=== PATIENT | female | born 1950 | race Caucasian/White ===

== ENCOUNTER 2023-04-29 18:24 | Inpatient (IN) | payer MEDICARE ==
[~2023-04-29 18:24] MED LIST: Iopamidol-370 76% 500 ML MDV (1 ML CHARGE) ONE
[2023-04-29 19:07] LABS: #Eosinphils 0.1 thou/uL (0.0-0.7); #Monocytes 0.5 thou/uL (0.11-0.59); #Neutrophils 5.8 thou/uL (1.40-6.50); %Basophils 0.4 % (0.0-1.0); %Eosinophils 0.8 % (0.0-10.0); %Lymphocytes 12.6 % (21.0-51.0); %Monocytes 6.8 % (0.0-10.0); %Neutrophils 79.3 % (42.0-75.0); Hematocrit 38.5 % (36.0-47.0); Hemoglobin 12.1 g/dL (12.0-16.0); Mean Corpuscular HGB CONC 31.4 g/dL (32.0-36.0); Mean Corpuscular Volume 95.5 fl (78.0-98.0); Mean Platelet Volume 10.1 fL (7.4-10.4); Platelet Count 153 10x3/uL (130-400); Red Blood Cell (RBC) Count 4.03 mill/uL (4.20-5.40); White Blood Cell (WBC) Count 7.3 10x3/uL (4.8-10.8)
[2023-04-29] MEDS ORDERED: cefTRIAXone (ROCEPHIN) 2 GM VIAL ONE (19:23)
[2023-04-29] MEDS ORDERED: Sodium Chloride 0.9% 100 ML ONE (19:23)
[2023-04-29 19:28] LABS: Bacteria/HPF None Seen HPF (None Seen); Bilirubin Negative (Negative); Blood, Urine Negative (Negative); CAUTI Indications for Culture Alt mental st,lethar; Clarity Clear (Clear); Glucose, Urine (Dipstick) Normal (Negative); Ketone, Urine Negative (Negative); Leukocyte Negative Leu/uL (Negative); Nitrite Negative (Negative); Protein, Urine (Dipstick) Negative (Neg-Trace); RBC/HPF 0-3 HPF (0-3); Specific Gravity, Urine 1.021 (1.002-1.036); Squamous Epithelial 0-3 HPF (0-3); Urobilinogen Normal mg/dL (Less than 2); WBC/HPF 0-3 HPF (0-3)
[2023-04-29 19:30] LABS: ALT (SGPT) 13 U/L (8-55); AST (SGOT) 14 U/L (5-34); Alkaline Phosphatase 54 U/L (40-110); Anion Gap 14 mmol/L (10-20); BUN (Urea Nitrogen) 18 mg/dL (9.8-20.1); Bilirubin, Total 0.3 mg/dL (0.2-1.2); Calc. Creatinine Clearance 0 mL/min (70-130); Calcium 8.2 mg/dL (7.8-10.44); Carbon Dioxide 22 mmol/L (23-31); Chloride 108 mmol/L (98-107); Estimated GFR 75; Globulin 1.9 g/dL (2.4-3.5); Glucose 154 mg/dL (83-110); Potassium 3.6 mmol/L (3.5-5.1); Protein, Total 5.9 g/dL (5.8-8.1); Sodium 140 mmol/L (136-145)
[2023-04-29 19:34] LABS: Urine Culture Reflex No No
[2023-04-29 19:34] LABS: Troponin I Less than 0.010 ng/mL (< 0.028)
[2023-04-29 20:44] LABS: SARS-CoV-2 NAA Rapid Test Not Detected (NotDetected)
[2023-04-29 22:12] LABS: Lactic Acid 1.9 mmol/L (0.5-2.2)
[2023-04-29] MEDS ORDERED: Calcium Carbonate 500 MG ChewTAB PO PRN (22:49)
[2023-04-29] MEDS ORDERED: Senokot S 8.6-50 MG TAB PO PRN (22:49)
[2023-04-29] MEDS ORDERED: Ondansetron ODT 4 MG TAB PO PRN (22:49)
[2023-04-29] MEDS ORDERED: Acetaminophen 325 MG TAB PO PRN (22:49)
[2023-04-30 00:21] VITALS: BMI 25.0
[2023-04-30 04:10] LABS: #Eosinphils 0.1 thou/uL (0.0-0.7); #Monocytes 0.4 thou/uL (0.11-0.59); #Neutrophils 3.5 thou/uL (1.40-6.50); %Basophils 0.4 % (0.0-1.0); %Eosinophils 0.9 % (0.0-10.0); %Lymphocytes 24.7 % (21.0-51.0); %Neutrophils 65.6 % (42.0-75.0); Hemoglobin 11.7 g/dL (12.0-16.0); Mean Corpuscular HGB CONC 31.6 g/dL (32.0-36.0); Mean Corpuscular Hemoglobin 29.6 pg (27.0-31.0); Mean Corpuscular Volume 93.7 fl (78.0-98.0); Platelet Count 146 10x3/uL (130-400); RBC Distribution Width 12.8 % (11.5-14.5); Red Blood Cell (RBC) Count 3.95 mill/uL (4.20-5.40); White Blood Cell (WBC) Count 5.4 10x3/uL (4.8-10.8)
[2023-04-30 04:45] LABS: Anion Gap 10 mmol/L (10-20); BUN (Urea Nitrogen) 13 mg/dL (9.8-20.1); Calc. Creatinine Clearance 75 mL/min (70-130); Calcium 8.3 mg/dL (7.8-10.44); Carbon Dioxide 23 mmol/L (23-31); Chloride 109 mmol/L (98-107); Estimated GFR 94; Glucose 94 mg/dL (83-110); Potassium 3.4 mmol/L (3.5-5.1); Sodium 139 mmol/L (136-145)
[2023-04-30] MEDS ORDERED: Electrolyte Replacement Protocol 1 EACH FS SCH (05:57)
[2023-04-30] MEDS ORDERED: Potassium Chloride 20 MEQ TAB PO SCH (08:00)
[2023-04-30] MEDS ORDERED: BROMFENAC SODIUM L EYE SCH (09:00)
[2023-04-30] MEDS: Famotidine 20 MG TAB PO SCH ×2 (09:14→20:28)
[2023-04-30] MEDS: busPIRone HCl 10 MG TAB PO SCH ×3 (09:14→20:28)
[2023-04-30] MEDS: Fluticasone Propionate Nasal Spray 16 gm Bottle NASAL SCH (16:52)
[2023-04-30] MEDS ORDERED: cefTRIAXone\\ROCEPHIN 1 GM in Sodium Chloride 0.9% 100 ML IVPB SCH (20:00)
[2023-04-30] MEDS ORDERED: Mirtazapine 30 MG TAB PO SCH (21:00)
[2023-05-01 04:52] LABS: #Eosinphils 0.1 thou/uL (0.0-0.7); #Monocytes 0.5 thou/uL (0.11-0.59); #Neutrophils 2.6 thou/uL (1.40-6.50); %Basophils 0.7 % (0.0-1.0); %Eosinophils 2.9 % (0.0-10.0); %Lymphocytes 28.5 % (21.0-51.0); %Monocytes 10.3 % (0.0-10.0); %Neutrophils 57.2 % (42.0-75.0); Hematocrit 39.6 % (36.0-47.0); Hemoglobin 12.8 g/dL (12.0-16.0); Mean Corpuscular HGB CONC 32.3 g/dL (32.0-36.0); Mean Corpuscular Hemoglobin 30.4 pg (27.0-31.0); Mean Corpuscular Volume 94.1 fl (78.0-98.0); Mean Platelet Volume 10.6 fL (7.4-10.4); Platelet Count 154 10x3/uL (130-400); Red Blood Cell (RBC) Count 4.21 mill/uL (4.20-5.40); White Blood Cell (WBC) Count 4.6 10x3/uL (4.8-10.8)
[2023-05-01 05:19] LABS: Anion Gap 13 mmol/L (10-20); BUN (Urea Nitrogen) 13 mg/dL (9.8-20.1); Calc. Creatinine Clearance 62 mL/min (70-130); Calcium 8.7 mg/dL (7.8-10.44); Carbon Dioxide 26 mmol/L (23-31); Chloride 110 mmol/L (98-107); Estimated GFR 81; Glucose 87 mg/dL (83-110); Potassium 4.1 mmol/L (3.5-5.1); Sodium 145 mmol/L (136-145)
[2023-05-01] MEDS: busPIRone HCl 10 MG TAB PO SCH ×3 (09:04→15:43)
[2023-05-01] MEDS: Fluticasone Propionate Nasal Spray 16 gm Bottle NASAL SCH (09:05)
[2023-05-01] MEDS: Famotidine 20 MG TAB PO SCH (09:05)
[2023-05-01 12:08] VITALS: BP 133/75; TEMP 97.8
[2023-05-01] MEDS ORDERED: Amoxicillin/Potassium Clav 875 MG TAB PO SCH (21:00)
== END 2023-05-01 15:40 | DRG 149 ==
LOC: ERS 18:24 → 2SE 22:42
PROVIDERS: ADMIT Student in an Organized Health Care Education/Training Program; ATTEND Hospitalist
PROC: 0T9B70Z Drainage of Bladder with Drainage Device, Via Natural or Artificial Opening (ICD-10-PCS; principal; 2023-04-29)
DX: R42 Dizziness and giddiness (principal); R65.10 Systemic inflammatory response syndrome (SIRS) of non-infectious origin without acute organ dysfunction; R26.81 Unsteadiness on feet; G30.9 Alzheimer's disease, unspecified; F02.80 Dementia in other diseases classified elsewhere, unspecified severity, without behavioral disturbance, psychotic disturbance, mood disturbance, and anxiety; Z11.52 Encounter for screening for COVID-19; Z88.1 Allergy status to other antibiotic agents; Z79.899 Other long term (current) drug therapy; E78.5 Hyperlipidemia, unspecified; F32.A Depression, unspecified
CPT/HCPCS: 36415; 36416; 70496; 70551; 71045; 71275; 80048; 80053; 81001; 83605; 84484; 85025; 85379; 87040; 93005; 93306; J0696; J1650; J3490; Q9967

== ENCOUNTER 2023-07-15 21:46 | Emergency (ER) | payer MEDICARE ==
[2023-07-15 22:44] LABS: #Eosinphils 0.1 thou/uL (0.0-0.7); #Monocytes 0.5 thou/uL (0.11-0.59); #Neutrophils 3.2 thou/uL (1.40-6.50); %Basophils 0.6 % (0.0-1.0); %Eosinophils 1.6 % (0.0-10.0); %Lymphocytes 26.6 % (21.0-51.0); %Monocytes 9.1 % (0.0-10.0); %Neutrophils 61.9 % (42.0-75.0); Hematocrit 39.3 % (36.0-47.0); Hemoglobin 12.5 g/dL (12.0-16.0); Mean Corpuscular HGB CONC 31.8 g/dL (32.0-36.0); Mean Corpuscular Hemoglobin 29.8 pg (27.0-31.0); Mean Corpuscular Volume 93.6 fl (78.0-98.0); Platelet Count 128 10x3/uL (130-400); RBC Distribution Width 13.1 % (11.5-14.5); White Blood Cell (WBC) Count 5.2 10x3/uL (4.8-10.8)
[2023-07-15 22:57] LABS: ALT (SGPT) 16 U/L (8-55); AST (SGOT) 13 U/L (5-34); Albumin 3.5 g/dL (3.4-4.8); Alkaline Phosphatase 45 U/L (40-110); Anion Gap 14 mmol/L (10-20); BUN (Urea Nitrogen) 21 mg/dL (9.8-20.1); Bilirubin, Total 0.2 mg/dL (0.2-1.2); Calc. Creatinine Clearance 0 mL/min (70-130); Calcium 8.4 mg/dL (7.8-10.44); Carbon Dioxide 22 mmol/L (23-31); Chloride 110 mmol/L (98-107); Estimated GFR 80; Globulin 2.2 g/dL (2.4-3.5); Glucose 89 mg/dL (83-110); Potassium 3.6 mmol/L (3.5-5.1); Protein, Total 5.7 g/dL (5.8-8.1); Sodium 142 mmol/L (136-145)
[2023-07-15 23:40] LABS: Troponin I Less than 0.010 ng/mL (< 0.028)
[2023-07-16 01:37] LABS: Bacteria/HPF None Seen HPF (None Seen); Bilirubin Negative (Negative); Blood, Urine Negative (Negative); CAUTI Indications for Culture Alt mental st,lethar; Clarity Clear (Clear); Glucose, Urine (Dipstick) Normal (Negative); Ketone, Urine Negative (Negative); Leukocyte Negative Leu/uL (Negative); Nitrite Negative (Negative); Protein, Urine (Dipstick) Negative (Neg-Trace); RBC/HPF None Seen HPF (0-3); Specific Gravity, Urine 1.024 (1.002-1.036); Squamous Epithelial 0-3 HPF (0-3); WBC/HPF 0-3 HPF (0-3)
[2023-07-16 01:40] LABS: Urine Culture Reflex No No
== END 2023-07-16 04:30 ==
LOC: ERS 21:46
DX: Z04.3 Encounter for examination and observation following other accident (principal); R29.6 Repeated falls; G30.9 Alzheimer's disease, unspecified; F02.80 Dementia in other diseases classified elsewhere, unspecified severity, without behavioral disturbance, psychotic disturbance, mood disturbance, and anxiety; Z79.899 Other long term (current) drug therapy
CPT/HCPCS: 36415; 51701; 70450; 71045; 72125; 72170; 80053; 81001; 84484; 85025; 93005; 96360; 96361

== ENCOUNTER 2023-08-13 16:09 | Inpatient (IN) | payer MEDICARE ==
[2023-08-13 17:07] LABS: #Monocytes 0.3 thou/uL (0.11-0.59); %Basophils 0.4 % (0.0-1.0); %Eosinophils 0.8 % (0.0-10.0); %Lymphocytes 29.1 % (21.0-51.0); %Monocytes 7.1 % (0.0-10.0); %Neutrophils 62.2 % (42.0-75.0); Hemoglobin 12.4 g/dL (12.0-16.0); Mean Corpuscular HGB CONC 31.8 g/dL (32.0-36.0); Mean Corpuscular Hemoglobin 29.8 pg (27.0-31.0); Mean Corpuscular Volume 93.8 fl (78.0-98.0); Platelet Count 174 10x3/uL (130-400); RBC Distribution Width 14.1 % (11.5-14.5); Red Blood Cell (RBC) Count 4.16 mill/uL (4.20-5.40); White Blood Cell (WBC) Count 4.8 10x3/uL (4.8-10.8)
[2023-08-13 17:28] LABS: ALT (SGPT) 15 U/L (8-55); AST (SGOT) 15 U/L (5-34); Albumin 3.7 g/dL (3.4-4.8); Alkaline Phosphatase 63 U/L (40-110); Anion Gap 13 mmol/L (10-20); BUN (Urea Nitrogen) 17 mg/dL (9.8-20.1); Bilirubin, Total 0.4 mg/dL (0.2-1.2); Calc. Creatinine Clearance 0 mL/min (70-130); Calcium 8.9 mg/dL (7.8-10.44); Carbon Dioxide 27 mmol/L (23-31); Chloride 108 mmol/L (98-107); Estimated GFR 90; Globulin 2.4 g/dL (2.4-3.5); Glucose 87 mg/dL (83-110); Protein, Total 6.1 g/dL (5.8-8.1); Sodium 144 mmol/L (136-145)
[2023-08-13 17:54] LABS: Bacteria/HPF None Seen HPF (None Seen); Bilirubin Negative (Negative); Blood, Urine Negative (Negative); CAUTI Indications for Culture Alt mental st,lethar; Clarity Clear (Clear); Glucose, Urine (Dipstick) Normal (Negative); Ketone, Urine Negative (Negative); Leukocyte Negative Leu/uL (Negative); Nitrite Negative (Negative); Protein, Urine (Dipstick) Negative (Neg-Trace); RBC/HPF None Seen HPF (0-3); Specific Gravity, Urine 1.018 (1.002-1.036); Squamous Epithelial 0-3 HPF (0-3); WBC/HPF 0-3 HPF (0-3)
[2023-08-13 17:55] LABS: Urine Culture Reflex No No
[2023-08-13] MEDS ORDERED: Morphine 4 MG/ML VIAL ONE (18:21)
[2023-08-13] MEDS ORDERED: Ondansetron PF 4 MG/2 ML Vial ONE (18:21)
[2023-08-13] MEDS ORDERED: Ipratropium/Albuterol 3 ML NEB NEB PRN (19:07)
[2023-08-13] MEDS ORDERED: Ondansetron PF 4 MG/2 ML Vial IVP PRN (19:07)
[2023-08-13] MEDS ORDERED: Morphine 2 MG/ML VIAL SLOW IVP PRN (19:07)
[2023-08-13] MEDS: Acetaminophen 500 MG TAB PO SCH (20:00)
[2023-08-13] MEDS: busPIRone HCl 10 MG TAB PO SCH (20:02)
[2023-08-13] MEDS: Memantine 10 MG TAB PO SCH (20:04)
[2023-08-13] MEDS: Melatonin 3 MG TAB PO SCH (20:05)
[2023-08-13] MEDS: Mirtazapine 15 MG TAB PO SCH (20:06)
[2023-08-13] MEDS: Famotidine/PF 20 mg/2ml Vial SLOW IVP SCH (20:08)
[2023-08-13] MEDS: TETANUS, DIPHTHERIA TOX,ADULT (TDVAX) 0.5 ML VIAL IM ONE (20:10)
[2023-08-13] MEDS: Sodium Chloride 0.9% 1,000 ML IV SCH (20:10)
[2023-08-13 20:33] LABS: Hematocrit 41.7 % (36.0-47.0); Hemoglobin 13.1 g/dL (12.0-16.0); Mean Corpuscular HGB CONC 31.4 g/dL (32.0-36.0); Mean Corpuscular Hemoglobin 29.2 pg (27.0-31.0); Mean Corpuscular Volume 93.1 fl (78.0-98.0); Mean Platelet Volume 9.7 fL (7.4-10.4); Platelet Count 164 10x3/uL (130-400); Red Blood Cell (RBC) Count 4.48 mill/uL (4.20-5.40); White Blood Cell (WBC) Count 7.6 10x3/uL (4.8-10.8)
[2023-08-13 20:51] LABS: Anion Gap 11 mmol/L (10-20); BUN (Urea Nitrogen) 14 mg/dL (9.8-20.1); Calc. Creatinine Clearance 0 mL/min (70-130); Calcium 8.9 mg/dL (7.8-10.44); Carbon Dioxide 26 mmol/L (23-31); Chloride 108 mmol/L (98-107); Estimated GFR 92; Glucose 96 mg/dL (83-110); Magnesium 2.1 mg/dL (1.6-2.6); Phosphorus 3.3 mg/dL (2.3-4.7); Potassium 3.5 mmol/L (3.5-5.1); Sodium 141 mmol/L (136-145)
[2023-08-13] MEDS: Lactated Ringer's 1,000 ML IV SCH (21:19)
[2023-08-13 22:45] VITALS: BMI 25.2
[2023-08-13] MEDS: Ketorolac Tromethamine 30 MG (1 mL) VIAL IVP SCH (23:36)
[2023-08-14 04:09] LABS: #Eosinphils 0.1 thou/uL (0.0-0.7); #Monocytes 0.4 thou/uL (0.11-0.59); #Neutrophils 2.3 thou/uL (1.40-6.50); %Basophils 0.5 % (0.0-1.0); %Eosinophils 1.7 % (0.0-10.0); %Lymphocytes 35.5 % (21.0-51.0); %Monocytes 8.3 % (0.0-10.0); %Neutrophils 53.8 % (42.0-75.0); Hematocrit 42.1 % (36.0-47.0); Hemoglobin 13.1 g/dL (12.0-16.0); Mean Corpuscular HGB CONC 31.1 g/dL (32.0-36.0); Mean Corpuscular Hemoglobin 29.2 pg (27.0-31.0); Mean Platelet Volume 10.5 fL (7.4-10.4); Platelet Count 148 10x3/uL (130-400); RBC Distribution Width 14.2 % (11.5-14.5); Red Blood Cell (RBC) Count 4.48 mill/uL (4.20-5.40); White Blood Cell (WBC) Count 4.2 10x3/uL (4.8-10.8)
[2023-08-14 04:39] LABS: Prothrombin Time 13.1 sec (12.0-14.7)
[2023-08-14 04:40] LABS: PTT 27.8 sec (22.9-36.1)
[2023-08-14 04:47] LABS: Anion Gap 11 mmol/L (10-20); BUN (Urea Nitrogen) 12 mg/dL (9.8-20.1); Calc. Creatinine Clearance 77 mL/min (70-130); Calcium 8.7 mg/dL (7.8-10.44); Carbon Dioxide 26 mmol/L (23-31); Chloride 111 mmol/L (98-107); Estimated GFR 95; Glucose 81 mg/dL (83-110); Potassium 3.8 mmol/L (3.5-5.1); Sodium 144 mmol/L (136-145)
[2023-08-14] MEDS ORDERED: CEFAZOLIN 2 GM in Sodium Chloride 0.9% 100 ML IVPB SCH (07:45)
[2023-08-14] MEDS ORDERED: hydrALAZINE 20 MG/ML VIAL SLOW IVP PRN (08:13)
[2023-08-14] MEDS ORDERED: BROMFENAC SODIUM L EYE SCH (09:00)
[2023-08-14] MEDS ORDERED: CEFAZOLIN 2 GM VIAL ONE (09:01)
[2023-08-14] MEDS ORDERED: Sodium Chloride 0.9% 100 ML ONE ×2 (09:02→11:13)
[2023-08-14] MEDS: busPIRone HCl 5 MG TAB PO SCH ×2 (09:41→14:05)
[2023-08-14] MEDS: Fluticasone Propionate Nasal Spray 16 gm Bottle NASAL SCH (09:41)
[2023-08-14] MEDS ORDERED: PROPOFOL 20 ML ONE (09:54)
[2023-08-14] MEDS ORDERED: fentaNYL PF 100 MCG/2 ML SYRINGE ONE (09:54)
[2023-08-14] MEDS ORDERED: Dexamethasone 4 mg/ml Vial ONE (11:04)
[2023-08-14] MEDS ORDERED: Ondansetron PF 4 MG/2 ML Vial ONE (11:04)
[2023-08-14] MEDS ORDERED: ePHEDrine Sulfate 50 MG/10 ML VIAL ONE (11:04)
[2023-08-14] MEDS ORDERED: Phenylephrine 10 MG/ML VIAL ONE (11:13)
[2023-08-14] MEDS ORDERED: PACU-Morphine 4MG/ML VIAL SLOW IVP PRN (12:01)
[2023-08-14] MEDS ORDERED: Morphine Sulfate 2 MG/ML SYRINGE SLOW IVP PRN (12:01)
[2023-08-14] MEDS ORDERED: Ondansetron HCl/PF 4 MG/2 ML Vial IVP PRN (12:01)
[2023-08-14] MEDS ORDERED: fentaNYL 50 mcg/mL 1 mL Vial ONE (12:13)
[2023-08-14] MEDS: CEFAZOLIN 2 GM in Sodium Chloride 0.9% 100 ML IVPB SCH (17:09)
[2023-08-14] MEDS: PARoxetine 20 MG TAB PO SCH (20:18)
[2023-08-15] MEDS: Haloperidol Lactate 5 MG/ML VIAL IM SCH (03:47)
[2023-08-15] MEDS: Haloperidol Lactate 5 MG/ML VIAL ONE (03:51)
[2023-08-15] MEDS: Aspirin 81 mg Enteric Coated Tablet PO SCH (09:07)
[2023-08-15] MEDS: QUEtiapine 25 MG TAB PO SCH (20:37)
[2023-08-16 04:44] LABS: #Eosinphils 0.1 thou/uL (0.0-0.7); #Monocytes 0.3 thou/uL (0.11-0.59); %Basophils 0.4 % (0.0-1.0); %Lymphocytes 29.8 % (21.0-51.0); %Monocytes 6.3 % (0.0-10.0); %Neutrophils 61.3 % (42.0-75.0); Hematocrit 40.6 % (36.0-47.0); Hemoglobin 12.9 g/dL (12.0-16.0); Mean Corpuscular HGB CONC 31.8 g/dL (32.0-36.0); Mean Corpuscular Hemoglobin 29.8 pg (27.0-31.0); Mean Corpuscular Volume 93.8 fl (78.0-98.0); Mean Platelet Volume 10.4 fL (7.4-10.4); Platelet Count 136 10x3/uL (130-400); RBC Distribution Width 14.1 % (11.5-14.5); Red Blood Cell (RBC) Count 4.33 mill/uL (4.20-5.40); White Blood Cell (WBC) Count 4.9 10x3/uL (4.8-10.8)
[2023-08-16 05:18] LABS: Anion Gap 13 mmol/L (10-20); BUN (Urea Nitrogen) 12 mg/dL (9.8-20.1); Calc. Creatinine Clearance 72 mL/min (70-130); Calcium 8.5 mg/dL (7.8-10.44); Carbon Dioxide 24 mmol/L (23-31); Chloride 110 mmol/L (98-107); Estimated GFR 93; Glucose 74 mg/dL (83-110); Potassium 3.9 mmol/L (3.5-5.1); Sodium 143 mmol/L (136-145)
[2023-08-17] MEDS: Famotidine 20 MG TAB PO SCH (08:27)
[2023-08-18 15:26] VITALS: BP 153/82; TEMP 98.1
== END 2023-08-18 15:27 | DRG 481 ==
LOC: ERS 16:09 → SURG A 18:19
PROVIDERS: ADMIT Specialist; ATTEND Specialist
PROC: 0T9B70Z Drainage of Bladder with Drainage Device, Via Natural or Artificial Opening (ICD-10-PCS; principal; 2023-08-13)
PROC: 0QS704Z Reposition Left Upper Femur with Internal Fixation Device, Open Approach (ICD-10-PCS; 2023-08-14)
DX: S72.012A Unspecified intracapsular fracture of left femur, initial encounter for closed fracture (principal); F03.918 Unspecified dementia, unspecified severity, with other behavioral disturbance; F05 Delirium due to known physiological condition; W18.30XA Fall on same level, unspecified, initial encounter; Z88.8 Allergy status to other drugs, medicaments and biological substances; Z79.899 Other long term (current) drug therapy; E78.5 Hyperlipidemia, unspecified; F32.A Depression, unspecified
CPT/HCPCS: 36415; 36416; 51701; 70450; 71045; 72125; 72192; 80048; 80053; 81001; 83735; 84100; 85025; 85610; 85730; 86850; 86900; 86901; 93005; 96374; 96375; C1713; J1100; J1630; J1885; J2270; J2371; J2405; J2704; J3010; J3490; J7050; J7120; S0028

== ENCOUNTER 2023-10-22 15:54 | Emergency (ER) | payer MEDICARE | END 2023-10-22 18:40 | LOC: ERS 15:54 | DX: S62.656A Nondisplaced fracture of middle phalanx of right little finger, initial encounter for closed fracture (principal); X58.XXXA Exposure to other specified factors, initial encounter ==

== ENCOUNTER 2023-11-03 11:39 | Emergency (ER) | payer MEDICARE | END 2023-11-03 16:29 | disposition home or self-care (01) | LOC: ERS 11:39 | DX: S02.2XXA Fracture of nasal bones, initial encounter for closed fracture (principal); S22.32XA Fracture of one rib, left side, initial encounter for closed fracture; S05.12XA Contusion of eyeball and orbital tissues, left eye, initial encounter; G30.9 Alzheimer's disease, unspecified; F02.80 Dementia in other diseases classified elsewhere, unspecified severity, without behavioral disturbance, psychotic disturbance, mood disturbance, and anxiety; W18.30XA Fall on same level, unspecified, initial encounter; Z79.82 Long term (current) use of aspirin; Z79.899 Other long term (current) drug therapy; Z55.6 Problems related to health literacy | CPT/HCPCS: 36416; 70450; 71045; 72170; 93005 ==

== ENCOUNTER 2023-11-08 16:32 | Emergency (ER) | payer MEDICARE | END 2023-11-09 00:03 | LOC: ERS 16:32 | DX: R51.9 Headache, unspecified (principal); G30.9 Alzheimer's disease, unspecified; F02.80 Dementia in other diseases classified elsewhere, unspecified severity, without behavioral disturbance, psychotic disturbance, mood disturbance, and anxiety; W05.0XXA Fall from non-moving wheelchair, initial encounter; Y93.89 Activity, other specified; Y92.89 Other specified places as the place of occurrence of the external cause; Z79.82 Long term (current) use of aspirin; Z79.899 Other long term (current) drug therapy; S05.11XA Contusion of eyeball and orbital tissues, right eye, initial encounter; S80.211A Abrasion, right knee, initial encounter; N39.0 Urinary tract infection, site not specified; W18.30XA Fall on same level, unspecified, initial encounter; Y92.129 Unspecified place in nursing home as the place of occurrence of the external cause | CPT/HCPCS: 51701; 70450 ×2; 70486 ×2; 72125 ×2; 72170; 80053; 81001; 85025; 87086; 96372; 99284 ×2; J2060; 36415 ==

== ENCOUNTER 2023-12-14 08:17 | Emergency (ER) | payer MEDICARE | END 2023-12-14 11:20 | disposition home or self-care (01) | LOC: ERS 08:17 | DX: S01.112A Laceration without foreign body of left eyelid and periocular area, initial encounter (principal); G93.89 Other specified disorders of brain; E78.5 Hyperlipidemia, unspecified; F03.90 Unspecified dementia, unspecified severity, without behavioral disturbance, psychotic disturbance, mood disturbance, and anxiety; Z79.82 Long term (current) use of aspirin; W18.09XA Striking against other object with subsequent fall, initial encounter | CPT/HCPCS: 12013; 70450; 70486; 72125 ==